=== PATIENT | female | born 2000 | race Caucasian/White ===

== ENCOUNTER → 2021-06-19 12:59 | Observation (INO) ==
[2021-06-19 12:04] LABS: Bacteria,Urine Few per hpf (None-Few); Bilirubin,Urine Negative (Negative); Blood,Urine Small (Negative); Clarity,Urine Clear (Clear); Color,Urine Yellow (Yellow); Glucose,Urine (UA) Normal (Normal); Ketones,Urine 20 mg/dL (Negative); Leukocyte Esterase,Urine Negative (Negative); Mucus,Urine Few per lpf (None-Few); Nitrite,Urine Negative (Negative); PH,Urine 6.5 pH Units (5.0-8.0); Protein,Urine Trace mg/dL (Neg-Trace); RBC,Urine 15-30 per hpf (0-3); Specific Gravity,Urine 1.022 (1.010-1.025); Squamous Epithelial Cell,Urine Few per hpf (None-Few); Urobilinogen,Urine Normal (Normal); WBC,Urine 0-3 per hpf (0-3)
== END | disposition home or self-care (01) ==
LOC: 1NENULAB
PROVIDERS: ADMIT Registered Nurse; ATTEND Registered Nurse

== ENCOUNTER 2021-10-26 03:55 | Inpatient (IN) ==
[2021-10-26] MEDS ORDERED: Metoclopramide 10 MG/2 ML VIAL IVP PRN (04:02)
[2021-10-26] MEDS ORDERED: Famotidine 20 MG/2 ML VIAL IVP PRN (04:02)
[2021-10-26] MEDS ORDERED: Ondansetron 4 MG/2 ML VIAL IVP PRN (04:02)
[2021-10-26] MEDS ORDERED: Naloxone 0.4 MG/ML INJ IVP PRN (04:02)
[2021-10-26] MEDS ORDERED: Lidocaine 1% 20 ML MDV INFILT PRN (04:02)
[2021-10-26] MEDS: Ringers Solution, Lactated 1,000 ML IVC SCH ×2 (04:42→21:18)
[2021-10-26 04:58] LABS: Basophils % 0.3 %; Eosinophils # 0.1 K/mcL (0.0-0.6); Eosinophils % 0.8 %; Hematocrit 37.7 % (35.3-44.9); Hemoglobin 12.2 g/dL (11.5-15.4); Immature Granulocytes % 0.4 % (0-4); Immature Platelets 17.5 % (1.1-6.1); Lymphocytes % 25.3 %; Mean Corpuscular HGB Conc 32.4 g/dL (31.6-35.5); Mean Corpuscular Hemoglobin 25.7 pg (28.0-33.3); Mean Corpuscular Volume 79.4 fL (83.0-100.0); Mean Platelet Volume 12.9 fL (9.4-12.4); Monocytes # 1.1 K/mcL (0.0-1.3); Neutrophils # 7.6 K/mcL (1.6-8.9); Platelet Count 213 K/mcL (140-400); Red Blood Count 4.75 M/mcL (3.82-4.97); Red Cell Distribution Width 14.4 % (11.5-14.5); Segmented Neutrophils % 64.2 %; White Blood Count 11.9 K/mcL (4.3-11.1)
[2021-10-26 05:03] LABS: Amphetamine Screen,Urine Negative ng/mL (Cutoff=1000); Barbiturate Screen,Urine Negative ng/mL (Cutoff=200); Benzodiazepines Screen,Urine Negative ng/mL (Cutoff=200); Cannabinoid Screen,Urine Negative ng/mL (Cutoff = 50); Cocaine Screen,Urine Negative ng/mL (Cutoff= 300); Opiate Screen,Urine Negative ng/mL (Cutoff=300); Phencyclidine Screen,Urine Negative ng/mL (Cutoff=25)
[2021-10-26 05:29] LABS: Influenza A PCR Negative (Negative); Influenza B PCR Negative (Negative); Resp. Syncytial Virus PCR Negative (Negative); SARS-CoV-2 by PCR (In House) Negative (Negative)
[2021-10-26] MEDS: Oxytocin 20 units/ LR 1000 mL 20 UNIT/1,000 ML BAG IVC SCH (06:16)
[2021-10-26] MEDS ORDERED: EPHEDrine 50 MG/ML VIAL IVP PRN (07:47)
[2021-10-26] MEDS ORDERED: Epidural Premix (fent/bupiv) 110 ML EP SCH (08:00)
[2021-10-26] MEDS: *HR* Nalbuphine 10 MG/ML AMPUL IV PRN ×2 (08:34→15:45)
[2021-10-26] MEDS ORDERED: *HR* FentaNYL (PF) 100 MCG/2 ML VIAL ONE (19:17)
[2021-10-26] MEDS ORDERED: Ropivacaine/PF 0.2% 20 ML VIAL ONE (19:17)
[2021-10-27] MEDS: Ringers Solution, Lactated 1,000 ML IVC SCH (03:21)
[2021-10-27] MEDS: Oxytocin 20 units/ LR 1000 mL 20 UNIT/1,000 ML BAG IVC SCH (03:44)
[2021-10-27] MEDS ORDERED: Lanolin 7 G OINT...G. TP PRN (14:14)
[2021-10-27] MEDS ORDERED: Ondansetron ODT 4 MG TAB.RAPDIS SL PRN (14:14)
[2021-10-27] MEDS ORDERED: Oxytocin 20 units/ LR 1000 mL 20 UNIT/1,000 ML BAG IVC SCH (14:14)
[2021-10-27] MEDS ORDERED: Benzocaine/Menthol 56 GM AEROSOL SPRAY TP PRN (14:14)
[2021-10-27] MEDS ORDERED: *HR* OxyCODONE Immed Rel 5 MG TABLET PO PRN (14:14)
[2021-10-27] MEDS ORDERED: Oxytocin 20 units/ LR 1000 mL 20 UNIT/1,000 ML BAG IVC ONE (14:14)
[2021-10-27] MEDS ORDERED: Rho Immune Globulin 1,500 UNIT SYRINGE IM PRN (14:14)
[2021-10-27] MEDS: Acetaminophen 325 MG TABLET PO SCH (17:06)
[2021-10-27] MEDS: Ibuprofen 600 MG TABLET PO SCH (17:07)
[2021-10-28] MEDS: Acetaminophen 325 MG TABLET PO SCH ×2 (00:23→06:18)
[2021-10-28] MEDS: Ibuprofen 600 MG TABLET PO SCH ×2 (00:24→06:18)
[2021-10-28 06:51] LABS: Basophils % 0.2 %; Eosinophils # 0.2 K/mcL (0.0-0.6); Eosinophils % 1.1 %; Hematocrit 25.2 % (35.3-44.9); Immature Granulocytes % 0.5 % (0-4); Lymphocytes # 3.1 K/mcL (0.6-4.6); Lymphocytes % 17.2 %; Mean Corpuscular HGB Conc 32.9 g/dL (31.6-35.5); Mean Corpuscular Hemoglobin 26.1 pg (28.0-33.3); Mean Corpuscular Volume 79.2 fL (83.0-100.0); Mean Platelet Volume 12.8 fL (9.4-12.4); Monocytes # 1.4 K/mcL (0.0-1.3); Monocytes % 7.7 %; Neutrophils # 13.2 K/mcL (1.6-8.9); Platelet Count 177 K/mcL (140-400); Red Blood Count 3.18 M/mcL (3.82-4.97); Red Cell Distribution Width 14.5 % (11.5-14.5); Segmented Neutrophils % 73.3 %
[2021-10-28 06:52] LABS: Hemoglobin 8.3 g/dL (11.5-15.4)
[2021-10-28 07:45] VITALS: BP 114/75; PULSE 91; TEMP 97.7; O2SAT 100
[2021-10-28] MEDS ORDERED: Prenatal Vit/FA 1 EACH TABLET PO SCH (09:00)
[2021-10-28] MEDS ORDERED: Rho Immune Globulin 1,500 UNIT SYRINGE IM ONE (13:15)
== END 2021-10-28 13:14 | disposition home or self-care (01) | DRG 806 ==
LOC: 1NENULAB 03:55 → 1NENUOBS 10-27 13:45 → UNDODISIN 10-28 12:33
PROVIDERS: ADMIT Student in an Organized Health Care Education/Training Program; ATTEND Student in an Organized Health Care Education/Training Program